=== PATIENT | male | born 1950 | race Caucasian/White ===

== ENCOUNTER 2018-01-15 08:02 | Observation (INO) | payer OTHER ==
[~2018-01-15] VITALS: Ht 175.3 cm; Wt 81.6 kg
--- NOTE | ~2018-01-15 | P ---
[facility] [place] [address] PROCEDURE REPORT Name: SAUNDRA CALDERA Room #: 213-P [facility] Francisco Javier Truong#: [id number] Admission: 01/15/18 Attend Phys: Guzman Shields MD Discharge: 01/16/18 Date of : 54 Report #: [id number] THIS REPORT FOR: //name// CC: [facility] physician/PCP Jovanny Shields PREOPERATIVE DIAGNOSIS: Atrial flutter. POSTOPERATIVE DIAGNOSIS: Typical counterclockwise atrial flutter. HISTORY: The patient is a 67-year-old with a history of typical atrial flutter, here for an ablation. PROCEDURES PERFORMED: 1. SVT ablation, CPT code 58449. 2. Left atrial pacing and recording, CPT code 56408. 3. 3D mapping EP, CPT code 14866. 4. Mapping of tachycardia, CPT code 20117. ANESTHESIA: The patient underwent MAC anesthesia with no anesthesia related complications. DESCRIPTION OF PROCEDURE: The patient underwent informed consent. We discussed the details of the procedure including the risks, which include but not limited to bleeding, vascular damage, cardiac perforation as well as stroke or IL. He understood these risks and is willing to proceed. As such, the patient was brought to the EP laboratory in a fasting and sedated state and prepped and draped in a sterile fashion. I injected lidocaine at the right groin region, obtained access to the right femoral vein x 3. I placed an 8-Macedonian short sheath and two 7-Macedonian short sheaths in the right femoral vein using the modified Seldinger technique. Under fluoroscopy, I placed a Biosense Orona decapolar catheter into the coronary sinus, which we utilized for pacing and sensing. I then placed a [employer] Livewire catheter into the right atrium, which we used for pacing and sensing. At baseline, the patient was in atrial flutter with an atrial cycle length of 250 milliseconds, ventricular cycle length of 600 milliseconds, QRS duration was 145 milliseconds with a right bundle branch block and a QT interval of 380 milliseconds. I performed pacing from Halo 1-2 and from the CS catheter. From Halo 1-2, the PPI minus tachycardia cycle length was 0. The activation sequence of the flutter was proximal to distal along the coronary sinus and counter clockwise along the Halo catheter. As such, a diagnosis of typical atrial flutter was made. Next, I placed an 8-mm Biosense Orona ablation catheter into the heart via a RAMP sheath. I created a 3D geometry of the right atrium and then created an activation map of the tachycardia, which was consistent with counterclockwise flutter. Next, ablation was performed at 70 philip and 60 degrees and a continuous drag lesion was performed at 6 o'clock along the tricuspid annulus [address] [address] PROCEDURE REPORT Name: SAUNDRA CALDERA [place] Room #: 213-P [facility] Truong#: [id number] Admission: 01/15/18 Attend Phys: Guzman Shields MD Discharge: 01/16/18 Date of : 54 Report #: [id number] and as the lesion was performed, there was slowing of the tachycardia and then termination. Post-ablation, there was evidence of bidirectional block with a transisthmus conduction time of 165 milliseconds when I paced from Halo 1-2 and a transisthmus conduction time of 160 milliseconds when I paced from CS 9-10. A basic EP study was then performed and AV block was noted at 290 milliseconds. Atrial ERP was noted at 210 milliseconds at a [address] cycle length. Double atrial extrastimuli were also delivered. We could not induce any arrhythmias. I did perform some additional ablation along the line to ensure there was a nice lesion site created. After EP study was concluded, I checked conduction again and now the transisthmus conduction time when pacing from Halo 1-2 was 180 milliseconds and when pacing from CS 9-10 was now noted to be 170 milliseconds. Post-ablation, the patient was in sinus rhythm with sinus cycle length of 640 milliseconds, ID interval 115 milliseconds, QRS duration 140 milliseconds with right bundle branch block and a QT interval of 410 milliseconds. CONCLUSIONS: 1. Successful ablation of typical atrial flutter with evidence of bidirectional block. 2. Normal SA david function. 3. Normal AV david function. 4. Normal His-Purkinje function. 5. No other inducible arrhythmias on or off isoproterenol. <ELECTRONICALLY SIGNED> By: Guzman Shields MD 01/22/18 1455 [id number] Guzman Shields MD /nt
--- NOTE | ~2018-01-15 | EKG ---
[address] [address] ELECTROCARDIOGRAM REPORT Name: SAUNDRA CALDERANETH Room #: 213[facility]..#: [id number] Admission: 01/15/18 Attend Phys: Guzman Shields MD Discharge: 01/16/18 Date of : 54 Report #: [id number] THIS REPORT FOR: //name// [facility] Test Date: 2018-01-16 Test Time: 09:17:49 Pat Name: SAUNDRA CALDERA Department: Room: 213 Gender: M Case Specialist: : [id number] Requested By: Mariah Melgar Order Number: [id number] MD: Ventura Zeng Measurements Intervals [place] Rate: 60 P: 35 MD: 114 QRS: 3 QRSD: 104 T: -22 QT: 405 QTc: 405 Interpretive Statements Sinus rhythm with sinus arrhythmia Borderline short MD interval Inferior-posterior infarct, age indeterminate No previous ECG available for comparison Electronically Signed On 01-16-2018 16:24:31 CDT by Ventura Zeng [email or web address] <ELECTRONICALLY SIGNED> By: Ventura Zeng MD, [facility] 01/16/18 1624 6 6 Ventura Zeng MD, [facility] /EPI
[~2018-01-15 08:02] MED LIST: CARDIZEM CD180 MG; ELIQUIS2.5 MG PO
[2018-01-15 08:57] LABS: ABSOLUTE NEUTROPHILS 3.4 thou/uL (1.4-8.2); BASOPHILS 0.6 % (0.0-2.0); EOSINOPHILS 0.9 % (0.0-3.0); HEMATOCRIT 50.8 % (42.0-52.0); HEMOGLOBIN 17.6 gm/dL (14.0-18.0); LYMPHOCYTES 32.6 % (24.0-44.0); MCH 32.5 pg (26.0-34.0); MCHC 34.7 g/dL (28.0-37.0); MCV 93.8 fL (80.0-100.0); MONOCYTES 7.5 % (1.0-8.0); PLATELET COUNT 180 thou/uL (150-400); POLYS 58.4 % (36.0-66.0); RBC 5.42 mil/uL (4.50-6.00); RDW 13.2 % (10.5-14.5); WBC 5.8 thou/uL (4.0-11.0)
[2018-01-15 09:05] VITALS: BP 152/93
[2018-01-15 09:07] LABS: CREATININE 1.3 mg/dL (0.7-1.3)
[2018-01-15 09:11] LABS: APTT 35.7 Seconds (24.5-32.8); INR 1.1; PROTIME 10.8 Seconds (9.3-11.4)
[2018-01-15] MEDS ORDERED: FISH OIL 1,001000 M2 PO (09:18)
[2018-01-15] MEDS ORDERED: VITAMIN E1000 UNI2 PO (09:19)
[2018-01-15] MEDS ORDERED: POTASSIUM GLUC500 MG PO (09:20)
[2018-01-15] MEDS ORDERED: VITAMIN B-12500 MCG PO (09:21)
[2018-01-15 18:15] VITALS: BP 134/83
[2018-01-15 18:30] VITALS: BP 119/85
[2018-01-15 19:58] VITALS: BP 141/96
[2018-01-16] VITALS (7 sets, daily range): BP systolic 128–141; BP diastolic 81–85
== END 2018-01-16 13:38 | disposition home or self-care (01) ==
LOC: CATH 08:02 → 2N 18:03 → ENTRNSPT 01-16 13:19 → 2N 01-16 13:38
PROVIDERS: Internal Medicine Cardiovascular Disease
DX: I48.3 Typical atrial flutter (principal); I25.10 Atherosclerotic heart disease of native coronary artery without angina pectoris; R53.83 Other fatigue; I10 Essential (primary) hypertension; Z90.89 Acquired absence of other organs; Z95.5 Presence of coronary angioplasty implant and graft; Z87.891 Personal history of nicotine dependence
CPT/HCPCS: 62110; 62900; 70005